=== PATIENT | male | born 1980 | race Caucasian/White ===

== ENCOUNTER 2022-04-29 18:04 | Emergency (ER) | payer OTHER, SELFPAY ==
[2022-04-29] VITALS (14 sets, daily range): BP systolic 142–162; BP diastolic 88–111; PULSE 88–111; RESP 18; TEMP 36.8; O2SAT 95–99; BMI 27.3
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
[2022-04-29] MEDS: IBUPROFEN 600 MG TABLET PO (18:31)
--- NOTE | 2022-04-29 19:29 | ED.NURSE ---
has been to imaging. did void in bathroom. steady on feet.
== END 2022-04-29 20:13 | disposition home or self-care (01) ==
LOC: ED 19:35
PROVIDERS: Emergency Provider Family Medicine; PCP Family Medicine
DX: M54.9 Dorsalgia, unspecified (principal); M79.605 Pain in left leg; V44.5XXA Car driver injured in collision with heavy transport vehicle or bus in traffic accident, initial encounter
CPT/HCPCS: 71260; 73562; 74177; 99284; 99285; 99291; A9270; Q9967

== ENCOUNTER 2022-06-13 10:00 | Outpatient (RCR) | payer OTHER, SELFPAY | END 2022-09-15 13:23 | disposition home or self-care (01) | PROVIDERS: PCP Family Medicine; Visit Provider Student in an Organized Health Care Education/Training Program | DX: M54.9 Dorsalgia, unspecified (principal); Z51.89 Encounter for other specified aftercare | CPT/HCPCS: 97110; 97140; 97162; 97165; 97535 ==